=== PATIENT | male | born 1965 | race Hispanic/Latino ===

== ENCOUNTER 2023-04-02 10:43 | Emergency (ER) | payer MEDICARE ==
[~2023-04-02] VITALS: Ht 175.3 cm; Wt 92.7 kg
[2023-04-02] MEDS ORDERED: MORPHINE 4 MG SYG IM ONE (12:00)
[2023-04-02] MEDS ORDERED: TETANUS/DIPHTHERIA TOXOID [ADULT] 0.5 ML VIAL IM ONE (12:00)
[2023-04-02] MEDS ORDERED: SILV20CR11 TP (12:31)
[2023-04-02] MEDS ORDERED: CEPH500B PO (12:35)
[2023-04-02] MEDS ORDERED: SILVER SULFADIAZINE CREAM 50 GM TP ONE (12:56)
[2023-04-02] MEDS ORDERED: SILVER SULFADIAZINE CREAM 400 GM TP SCH ×2 (13:00)
[2023-04-02 13:15] VITALS: BP 126/72; PULSE 74; RESP 16; O2SAT 98
== END 2023-04-02 13:37 | disposition home or self-care (01) ==
LOC: EDH 10:43
DX: T23.261A Burn of second degree of back of right hand, initial encounter (principal); T31.0 Burns involving less than 10% of body surface; I10 Essential (primary) hypertension; X10.2XXA Contact with fats and cooking oils, initial encounter; Y93.89 Activity, other specified; Y92.89 Other specified places as the place of occurrence of the external cause; Y99.8 Other external cause status
CPT/HCPCS: 99284; 90714; 96372; 90471; 16000; J2270

== ENCOUNTER 2023-04-15 10:39 | Inpatient (IN) | payer MEDICARE ==
[~2023-04-15] VITALS: Ht 175.3 cm; Wt 91.5 kg
[~2023-04-15 10:39] MED LIST: CEPH500B PO; SILV20CR11 TP
[2023-04-15 12:36] LABS: BASOPHILS # (AUTO) 0.07 K/uL (0.00-0.20); BASOPHILS % (AUTO) 0.6 % (0.0-5.0); EOSINOPHILS # (AUTO) 0.44 K/uL (0.00-0.70); EOSINOPHILS % (AUTO) 3.6 % (0.0-8.0); IMMATURE GRANULOCYTE ABSOLUTE 0.04 K/uL (0-1); LYMPHOCYTES # (AUTO) 2.7 K/uL (1.0-4.8); LYMPHOCYTES % (AUTO) 22.2 % (21.0-51.0); MEAN CORPUSCULAR HEMOGLOBIN 27.6 pg (27.0-33.0); MEAN CORPUSCULAR HGB CONC 33.4 g/dL (32.0-36.0); MEAN CORPUSCULAR VOLUME 82.6 fL (79-99); MONOCYTES # (AUTO) 1.2 K/uL (0.1-1.0); MONOCYTES % (AUTO) 10.1 % (3.0-13.0); NEUTROPHILS # (AUTO) 7.7 K/uL (1.8-7.7); NEUTROPHILS % (AUTO) 63.2 % (40.0-77.0); PLATELET COUNT (AUTO) 454 K/uL (130-400); RED BLOOD CELL COUNT(AUTO) 5.33 MIL/uL (4.50-6.20); RED CELL DISTRIBUTION WIDTH 17.9 % (11.0-15.5); WHITE BLOOD COUNT (AUTO) 12.1 K/uL (4.8-10.8)
[2023-04-15 12:49] LABS: INR < 0.93 (0.85-1.15); PROTHROMBIN TIME 10.7 SEC (9.6-11.6)
[2023-04-15 12:50] LABS: PARTIAL THROMBOPLASTIN TIME 27.3 SEC (26.3-35.5)
[2023-04-15 13:06] LABS: ALBUMIN 3.7 g/dL (3.5-5.0); BILIRUBIN,TOTAL 0.5 mg/dL (0.2-1.0); CREATININE 0.7 mg/dL (0.5-1.5); POTASSIUM 3.9 mmol/L (3.5-5.1)
[2023-04-15 13:19] LABS: APPEARANCE,URINE CLEAR (CLEAR); BILIRUBIN,URINE NEGATIVE (NEGATIVE); COLOR,URINE LIGHT-YELLOW (YELLOW); GLUCOSE, URINE (UA) NEGATIVE (NEGATIVE); KETONES,URINE NEGATIVE (NEGATIVE); LEUKOCYTE ESTERASE ,URINE NEGATIVE Leu/uL (NEGATIVE); NITRATE,URINE NEGATIVE (NEGATIVE); OCCULT BLOOD,URINE NEGATIVE (NEGATIVE); PH,URINE 6.5 (5.0-8.0); PROTEIN,URINE NEGATIVE (NEGATIVE); UROBILINOGEN,URINE 0.2 mg/dL (0.2-1.0)
[2023-04-15 13:43] LABS: ADD UA MICROSCOPIC NO
[2023-04-15] MEDS ORDERED: ONDANSETRON 4MG INJ IVP ONE (15:00)
[2023-04-15] MEDS ORDERED: MORPHINE 4 MG SYG IM ONE (15:00)
[2023-04-15] MEDS ORDERED: 0.9%NACL 50ML IV SCH (15:15)
[2023-04-15] MEDS ORDERED: ONDANSETRON 4MG INJ IV PRN (15:30)
[2023-04-15] MEDS ORDERED: DIPHENHYDRAMINE HCL 25 MG CAPSULE PO PRN (15:30)
[2023-04-15] MEDS ORDERED: VANCOMYCIN 1G/250ML KIT 250 ML IV SCH (15:30)
[2023-04-15] MEDS ORDERED: HYDRALAZINE 20MG/ML VIAL IV PRN (15:30)
[2023-04-15] MEDS ORDERED: NITROGLYCERIN 0.4 MG SL TAB SL PRN (15:30)
[2023-04-15] MEDS ORDERED: VANCOMYCIN PROTOCOL PER PHARMACY IV SCH (15:30)
[2023-04-15] MEDS ORDERED: MAG/ALUM/SIMETH 30 ML UDCUP PO PRN (15:30)
[2023-04-15] MEDS ORDERED: LACTULOSE 20 GM/30 ML UDCUP PO PRN (15:30)
[2023-04-15] MEDS ORDERED: GUAIFENESIN-DM 200/20 MG 10 ML PO PRN (15:30)
[2023-04-15] MEDS: ZOSYN 3.375GM +NS 50ML IVPB SCH ×2 (16:06→23:10)
[2023-04-15] MEDS ORDERED: VANCOMYCIN 2GM/500 ML BAG 500 ML IV ONE (16:30)
[2023-04-15] MEDS: MORPHINE 2 MG SYG IV PRN (19:33)
[2023-04-15] MEDS ORDERED: ZOSYN 3.375GM+NS 50ML 50 ML IV SCH (21:00)
[2023-04-15] MEDS: FAMOTIDINE 20MG VIAL IV SCH (21:39)
[2023-04-15] MEDS ORDERED: ATOR10TA69 PO (22:12)
[2023-04-15] MEDS ORDERED: CLOP-31 PO (22:13)
[2023-04-15] MEDS ORDERED: LISI30TA4 PO (22:13)
[2023-04-15] MEDS ORDERED: ASPI-1443 PO (22:14)
[2023-04-16] VITALS: BP 92/58; PULSE 72; RESP 16
[2023-04-16 04:00] VITALS: BP 108/62; PULSE 72; RESP 18
[2023-04-16] MEDS: VANCOMYCIN 1G/250ML KIT 250 ML IV SCH ×3 (05:04→21:28)
[2023-04-16] MEDS: MORPHINE 2 MG SYG IV PRN ×5 (06:56→22:41)
[2023-04-16 08:00] VITALS: BP 111/63; PULSE 70; RESP 16; O2SAT 94
[2023-04-16] MEDS: FAMOTIDINE 20MG VIAL IV SCH ×2 (08:31→20:05)
[2023-04-16] MEDS: ZOSYN 3.375GM +NS 50ML IVPB SCH ×3 (08:31→22:39)
[2023-04-16] MEDS: ENOXAPARIN SODIUM 40 MG/0.4 ML SYRINGE SQ SCH (08:32)
[2023-04-16 08:51] LABS: BASOPHILS # (AUTO) 0.07 K/uL (0.00-0.20); BASOPHILS % (AUTO) 0.7 % (0.0-5.0); EOSINOPHILS # (AUTO) 0.67 K/uL (0.00-0.70); EOSINOPHILS % (AUTO) 6.3 % (0.0-8.0); HEMATOCRIT 41.8 % (42-54); IMMATURE GRANULOCYTE ABSOLUTE 0.03 K/uL (0-1); LYMPHOCYTES % (AUTO) 18.6 % (21.0-51.0); MEAN CORPUSCULAR HEMOGLOBIN 27.8 pg (27.0-33.0); MEAN CORPUSCULAR HGB CONC 33.5 g/dL (32.0-36.0); MEAN CORPUSCULAR VOLUME 83.1 fL (79-99); MONOCYTES # (AUTO) 1.2 K/uL (0.1-1.0); MONOCYTES % (AUTO) 11.1 % (3.0-13.0); NEUTROPHILS # (AUTO) 6.8 K/uL (1.8-7.7); PLATELET COUNT (AUTO) 476 K/uL (130-400); RED BLOOD CELL COUNT(AUTO) 5.03 MIL/uL (4.50-6.20); RED CELL DISTRIBUTION WIDTH 17.6 % (11.0-15.5); WHITE BLOOD COUNT (AUTO) 10.7 K/uL (4.8-10.8)
[2023-04-16] MEDS: ATORVASTATIN 10 MG TABLET PO SCH (09:06)
[2023-04-16] MEDS: ASPIRIN 81 MG EC TAB PO SCH (09:06)
[2023-04-16 09:08] LABS: ALBUMIN 3.1 g/dL (3.5-5.0); BILIRUBIN,TOTAL 0.3 mg/dL (0.2-1.0); CREATININE 0.8 mg/dL (0.5-1.5); MAGNESIUM 2.1 mg/dL (1.80-2.40); POTASSIUM 4.1 mmol/L (3.5-5.1); TOTAL PROTEIN, SERUM 7.1 g/dL (6.0-8.3)
[2023-04-16 12:00] VITALS: BP 118/69; PULSE 72; RESP 16
[2023-04-16 16:00] VITALS: BP 129/68; PULSE 70; RESP 16
[2023-04-16 20:05] VITALS: BP 123/63; PULSE 66; RESP 18; O2SAT 97
[2023-04-17] VITALS (8 sets, daily range): BP systolic 108–147; BP diastolic 68–81; PULSE 66–98; RESP 16–24; O2SAT 96–98
[2023-04-17] MEDS: VANCOMYCIN 1G/250ML KIT 250 ML IV SCH ×3 (05:08→20:26)
[2023-04-17] MEDS: ZOSYN 3.375GM +NS 50ML IVPB SCH ×3 (05:08→23:21)
[2023-04-17] MEDS: MORPHINE 2 MG SYG IV PRN ×4 (05:09→20:26)
[2023-04-17 06:40] LABS: BASOPHILS # (AUTO) 0.07 K/uL (0.00-0.20); BASOPHILS % (AUTO) 0.7 % (0.0-5.0); EOSINOPHILS # (AUTO) 0.88 K/uL (0.00-0.70); EOSINOPHILS % (AUTO) 8.9 % (0.0-8.0); HEMATOCRIT 40.9 % (42-54); IMMATURE GRANULOCYTE ABSOLUTE 0.03 K/uL (0-1); LYMPHOCYTES # (AUTO) 1.9 K/uL (1.0-4.8); LYMPHOCYTES % (AUTO) 19.6 % (21.0-51.0); MEAN CORPUSCULAR HEMOGLOBIN 27.5 pg (27.0-33.0); MEAN CORPUSCULAR HGB CONC 33.3 g/dL (32.0-36.0); MEAN CORPUSCULAR VOLUME 82.8 fL (79-99); MONOCYTES # (AUTO) 1.1 K/uL (0.1-1.0); MONOCYTES % (AUTO) 10.9 % (3.0-13.0); NEUTROPHILS # (AUTO) 5.9 K/uL (1.8-7.7); NEUTROPHILS % (AUTO) 59.6 % (40.0-77.0); PLATELET COUNT (AUTO) 453 K/uL (130-400); RED BLOOD CELL COUNT(AUTO) 4.94 MIL/uL (4.50-6.20); RED CELL DISTRIBUTION WIDTH 17.6 % (11.0-15.5); WHITE BLOOD COUNT (AUTO) 9.9 K/uL (4.8-10.8)
[2023-04-17 06:51] LABS: ALBUMIN 2.8 g/dL (3.5-5.0); BILIRUBIN,TOTAL 0.4 mg/dL (0.2-1.0); CREATININE 0.8 mg/dL (0.5-1.5); POTASSIUM 4.1 mmol/L (3.5-5.1); TOTAL PROTEIN, SERUM 6.6 g/dL (6.0-8.3)
[2023-04-17] MEDS: ASPIRIN 81 MG EC TAB PO SCH (08:41)
[2023-04-17] MEDS: FAMOTIDINE 20MG VIAL IV SCH ×2 (08:41→20:26)
[2023-04-17] MEDS: ATORVASTATIN 10 MG TABLET PO SCH (08:42)
[2023-04-17] MEDS: ENOXAPARIN SODIUM 40 MG/0.4 ML SYRINGE SQ SCH (08:43)
[2023-04-17] MEDS: LISINOPRIL 20 MG TABLET PO SCH (08:50)
[2023-04-18] VITALS (7 sets, daily range): BP systolic 108–142; BP diastolic 54–72; PULSE 62–77; RESP 18–20; O2SAT 96–97
[2023-04-18] MEDS: VANCOMYCIN 1G/250ML KIT 250 ML IV SCH (06:19)
[2023-04-18] MEDS: ZOSYN 3.375GM +NS 50ML IVPB SCH ×3 (06:19→22:44)
[2023-04-18] MEDS: MORPHINE 2 MG SYG IV PRN ×4 (06:28→22:45)
[2023-04-18] MEDS: ATORVASTATIN 10 MG TABLET PO SCH (09:28)
[2023-04-18] MEDS: FAMOTIDINE 20MG VIAL IV SCH ×2 (09:28→20:46)
[2023-04-18] MEDS: ASPIRIN 81 MG EC TAB PO SCH (09:28)
[2023-04-18] MEDS: LISINOPRIL 20 MG TABLET PO SCH (09:28)
[2023-04-18] MEDS: CLOPIDOGREL 75MG TAB PO SCH (09:28)
[2023-04-18] MEDS: ENOXAPARIN SODIUM 40 MG/0.4 ML SYRINGE SQ SCH (09:29)
[2023-04-18 13:01] LABS: BASOPHILS # (AUTO) 0.07 K/uL (0.00-0.20); BASOPHILS % (AUTO) 0.6 % (0.0-5.0); EOSINOPHILS # (AUTO) 1.11 K/uL (0.00-0.70); EOSINOPHILS % (AUTO) 9.3 % (0.0-8.0); HEMATOCRIT 41.1 % (42-54); IMMATURE GRANULOCYTE ABSOLUTE 0.04 K/uL (0-1); LYMPHOCYTES # (AUTO) 2.7 K/uL (1.0-4.8); LYMPHOCYTES % (AUTO) 22.8 % (21.0-51.0); MEAN CORPUSCULAR HEMOGLOBIN 27.9 pg (27.0-33.0); MEAN CORPUSCULAR HGB CONC 33.8 g/dL (32.0-36.0); MEAN CORPUSCULAR VOLUME 82.5 fL (79-99); MONOCYTES # (AUTO) 1.3 K/uL (0.1-1.0); MONOCYTES % (AUTO) 10.9 % (3.0-13.0); NEUTROPHILS # (AUTO) 6.7 K/uL (1.8-7.7); NEUTROPHILS % (AUTO) 56.1 % (40.0-77.0); PLATELET COUNT (AUTO) 486 K/uL (130-400); RED BLOOD CELL COUNT(AUTO) 4.98 MIL/uL (4.50-6.20); RED CELL DISTRIBUTION WIDTH 17.7 % (11.0-15.5)
[2023-04-18 13:09] LABS: CREATININE 0.7 mg/dL (0.5-1.5); POTASSIUM 3.9 mmol/L (3.5-5.1)
[2023-04-18] MEDS: VANCOMYCIN 750MG VIAL IVPB SCH (17:57)
[2023-04-19] VITALS (7 sets, daily range): BP systolic 118–134; BP diastolic 63–74; PULSE 62–75; RESP 18–20; O2SAT 97–98
[2023-04-19] MEDS: VANCOMYCIN 750MG VIAL IVPB SCH ×3 (02:06→17:23)
[2023-04-19 05:16] LABS: MEAN CORPUSCULAR HEMOGLOBIN 27.7 pg (27.0-33.0); MEAN CORPUSCULAR HGB CONC 32.8 g/dL (32.0-36.0); MEAN CORPUSCULAR VOLUME 84.6 fL (79-99); RED BLOOD CELL COUNT(AUTO) 4.73 MIL/uL (4.50-6.20); RED CELL DISTRIBUTION WIDTH 17.4 % (11.0-15.5); WHITE BLOOD COUNT (AUTO) 10.5 K/uL (4.8-10.8)
[2023-04-19 05:33] LABS: CREATININE 0.7 mg/dL (0.5-1.5); POTASSIUM 4.1 mmol/L (3.5-5.1)
[2023-04-19] MEDS: ZOSYN 3.375GM +NS 50ML IVPB SCH ×3 (06:33→22:57)
[2023-04-19] MEDS ORDERED: IOHEXOL-350 50ML VIAL IV ONE (09:36)
[2023-04-19] MEDS ORDERED: IOHEXOL 350 MG/ML 100ML INFUS..BTL IV ONE (09:36)
[2023-04-19] MEDS: ENOXAPARIN SODIUM 40 MG/0.4 ML SYRINGE SQ SCH (10:11)
[2023-04-19] MEDS: CLOPIDOGREL 75MG TAB PO SCH (10:12)
[2023-04-19] MEDS: ASPIRIN 81 MG EC TAB PO SCH (10:12)
[2023-04-19] MEDS: FAMOTIDINE 20MG VIAL IV SCH ×2 (10:12→22:57)
[2023-04-19] MEDS: LISINOPRIL 20 MG TABLET PO SCH (10:12)
[2023-04-19] MEDS: ATORVASTATIN 10 MG TABLET PO SCH (10:12)
[2023-04-20] VITALS (8 sets, daily range): BP systolic 121–148; BP diastolic 64–81; PULSE 61–108; RESP 16–19; O2SAT 95–98
[2023-04-20] MEDS ORDERED: VANCOMYCIN 1G/250ML KIT 250 ML IV SCH (02:00)
[2023-04-20 04:58] LABS: HEMATOCRIT 39.7 % (42-54); MEAN CORPUSCULAR HGB CONC 33.5 g/dL (32.0-36.0); MEAN CORPUSCULAR VOLUME 83.6 fL (79-99); RED BLOOD CELL COUNT(AUTO) 4.75 MIL/uL (4.50-6.20); RED CELL DISTRIBUTION WIDTH 17.2 % (11.0-15.5); WHITE BLOOD COUNT (AUTO) 10.7 K/uL (4.8-10.8)
[2023-04-20 05:12] LABS: CREATININE 0.8 mg/dL (0.5-1.5); POTASSIUM 3.6 mmol/L (3.5-5.1)
[2023-04-20] MEDS: ZOSYN 3.375GM +NS 50ML IVPB SCH ×3 (06:30→22:48)
[2023-04-20] MEDS: ENOXAPARIN SODIUM 40 MG/0.4 ML SYRINGE SQ SCH (08:52)
[2023-04-20] MEDS: CLOPIDOGREL 75MG TAB PO SCH (08:53)
[2023-04-20] MEDS: LISINOPRIL 20 MG TABLET PO SCH (08:53)
[2023-04-20] MEDS: FAMOTIDINE 20MG VIAL IV SCH ×2 (08:53→20:15)
[2023-04-20] MEDS: ATORVASTATIN 10 MG TABLET PO SCH (08:54)
[2023-04-20] MEDS: ASPIRIN 81 MG EC TAB PO SCH (08:54)
[2023-04-20] MEDS ORDERED: COMPOUND IV REFRIGERATED 1 EACH IVSOLN MISC PRN (13:30)
[2023-04-20] MEDS: VANCOMYCIN 1G/250ML KIT 250 ML IV SCH ×2 (13:44→21:27)
[2023-04-20 17:19] LABS: INR < 0.93 (0.85-1.15); PROTHROMBIN TIME 10.7 SEC (9.6-11.6)
[2023-04-20 17:21] LABS: PARTIAL THROMBOPLASTIN TIME 27.4 SEC (26.3-35.5)
[2023-04-20] MEDS: MORPHINE 2 MG SYG IVP PRN (20:16)
[2023-04-21] VITALS (8 sets, daily range): BP systolic 112–140; BP diastolic 64–75; PULSE 60–97; RESP 16–18; O2SAT 96–98
[2023-04-21] MEDS: VANCOMYCIN 1G/250ML KIT 250 ML IV SCH ×3 (04:39→21:40)
[2023-04-21] MEDS: MORPHINE 2 MG SYG IVP PRN ×3 (04:39→20:26)
[2023-04-21 04:45] LABS: HEMATOCRIT 39.7 % (42-54); MEAN CORPUSCULAR HEMOGLOBIN 27.4 pg (27.0-33.0); MEAN CORPUSCULAR HGB CONC 33.2 g/dL (32.0-36.0); MEAN CORPUSCULAR VOLUME 82.5 fL (79-99); RED BLOOD CELL COUNT(AUTO) 4.81 MIL/uL (4.50-6.20); RED CELL DISTRIBUTION WIDTH 17.6 % (11.0-15.5)
[2023-04-21 04:59] LABS: CREATININE 0.7 mg/dL (0.5-1.5); POTASSIUM 4.6 mmol/L (3.5-5.1)
[2023-04-21] MEDS: ZOSYN 3.375GM +NS 50ML IVPB SCH ×3 (05:16→22:37)
[2023-04-21] MEDS: LISINOPRIL 20 MG TABLET PO SCH (08:26)
[2023-04-21] MEDS: ASPIRIN 81 MG EC TAB PO SCH (08:26)
[2023-04-21] MEDS: ENOXAPARIN SODIUM 40 MG/0.4 ML SYRINGE SQ SCH (08:26)
[2023-04-21] MEDS: ATORVASTATIN 10 MG TABLET PO SCH (08:26)
[2023-04-21] MEDS: CLOPIDOGREL 75MG TAB PO SCH (08:27)
[2023-04-21] MEDS: FAMOTIDINE 20MG VIAL IV SCH ×2 (08:27→20:26)
[2023-04-21] MEDS: CILOSTAZOL 100 MG TAB PO SCH ×2 (12:32→20:26)
[2023-04-22] VITALS (7 sets, daily range): BP systolic 104–137; BP diastolic 57–74; PULSE 67–87; RESP 16–20; O2SAT 96–97
[2023-04-22] MEDS: MORPHINE 2 MG SYG IVP PRN ×3 (00:52→20:47)
[2023-04-22 03:59] LABS: HEMATOCRIT 38.5 % (42-54); MEAN CORPUSCULAR HEMOGLOBIN 27.7 pg (27.0-33.0); MEAN CORPUSCULAR VOLUME 84.1 fL (79-99); RED BLOOD CELL COUNT(AUTO) 4.58 MIL/uL (4.50-6.20); RED CELL DISTRIBUTION WIDTH 17.5 % (11.0-15.5); WHITE BLOOD COUNT (AUTO) 8.1 K/uL (4.8-10.8)
[2023-04-22 04:19] LABS: CREATININE 0.8 mg/dL (0.5-1.5); POTASSIUM 3.9 mmol/L (3.5-5.1)
[2023-04-22] MEDS: VANCOMYCIN 1G/250ML KIT 250 ML IV SCH ×3 (05:18→20:46)
[2023-04-22] MEDS: ZOSYN 3.375GM +NS 50ML IVPB SCH ×2 (05:18→16:23)
[2023-04-22] MEDS: CLOPIDOGREL 75MG TAB PO SCH (09:01)
[2023-04-22] MEDS: FAMOTIDINE 20MG VIAL IV SCH ×2 (09:01→20:45)
[2023-04-22] MEDS: ASPIRIN 81 MG EC TAB PO SCH (09:01)
[2023-04-22] MEDS: LISINOPRIL 20 MG TABLET PO SCH (09:02)
[2023-04-22] MEDS: ATORVASTATIN 10 MG TABLET PO SCH (09:02)
[2023-04-22] MEDS: ENOXAPARIN SODIUM 40 MG/0.4 ML SYRINGE SQ SCH (09:03)
[2023-04-22] MEDS: CILOSTAZOL 100 MG TAB PO SCH ×2 (09:03→20:45)
[2023-04-23] VITALS (8 sets, daily range): BP systolic 99–120; BP diastolic 59–75; PULSE 72–84; RESP 18–20; O2SAT 96
[2023-04-23] MEDS: ZOSYN 3.375GM +NS 50ML IVPB SCH ×3 (00:22→15:16)
[2023-04-23 05:35] LABS: CREATININE 0.7 mg/dL (0.5-1.5); POTASSIUM 3.5 mmol/L (3.5-5.1); VANCOMYCIN TROUGH 12.4 UG/ML (10.0-20.0)
[2023-04-23 06:12] LABS: HEMATOCRIT 38.6 % (42-54); MEAN CORPUSCULAR HEMOGLOBIN 27.8 pg (27.0-33.0); MEAN CORPUSCULAR HGB CONC 33.9 g/dL (32.0-36.0); RED BLOOD CELL COUNT(AUTO) 4.71 MIL/uL (4.50-6.20); RED CELL DISTRIBUTION WIDTH 17.2 % (11.0-15.5); WHITE BLOOD COUNT (AUTO) 7.4 K/uL (4.8-10.8)
[2023-04-23] MEDS: VANCOMYCIN 1G/250ML KIT 250 ML IV SCH ×3 (06:50→21:33)
[2023-04-23] MEDS: ENOXAPARIN SODIUM 40 MG/0.4 ML SYRINGE SQ SCH (08:57)
[2023-04-23] MEDS: LISINOPRIL 20 MG TABLET PO SCH (08:58)
[2023-04-23] MEDS: CILOSTAZOL 100 MG TAB PO SCH ×2 (08:58→21:33)
[2023-04-23] MEDS: ATORVASTATIN 10 MG TABLET PO SCH (08:58)
[2023-04-23] MEDS: FAMOTIDINE 20MG VIAL IV SCH ×2 (08:58→21:33)
[2023-04-23] MEDS: CLOPIDOGREL 75MG TAB PO SCH (08:58)
[2023-04-23] MEDS: ASPIRIN 81 MG EC TAB PO SCH (08:58)
[2023-04-23] MEDS: MORPHINE 2 MG SYG IVP PRN ×3 (09:10→21:32)
[2023-04-24] MEDS: ZOSYN 3.375GM +NS 50ML IVPB SCH ×4 (00:03→23:54)
[2023-04-24 04:00] VITALS: BP 113/64; PULSE 77; RESP 19
[2023-04-24 04:59] LABS: HEMATOCRIT 38.9 % (42-54); MEAN CORPUSCULAR HEMOGLOBIN 27.5 pg (27.0-33.0); MEAN CORPUSCULAR HGB CONC 32.9 g/dL (32.0-36.0); MEAN CORPUSCULAR VOLUME 83.7 fL (79-99); RED BLOOD CELL COUNT(AUTO) 4.65 MIL/uL (4.50-6.20); RED CELL DISTRIBUTION WIDTH 17.3 % (11.0-15.5); WHITE BLOOD COUNT (AUTO) 7.6 K/uL (4.8-10.8)
[2023-04-24 05:14] LABS: CREATININE 0.8 mg/dL (0.5-1.5); POTASSIUM 3.7 mmol/L (3.5-5.1)
[2023-04-24] MEDS: VANCOMYCIN 1G/250ML KIT 250 ML IV SCH ×3 (06:00→21:38)
[2023-04-24 07:30] VITALS: O2SAT 98
[2023-04-24 08:00] VITALS: BP 114/67; PULSE 70; RESP 19
[2023-04-24] MEDS: ASPIRIN 81 MG EC TAB PO SCH (08:38)
[2023-04-24] MEDS: CLOPIDOGREL 75MG TAB PO SCH (08:38)
[2023-04-24] MEDS: CILOSTAZOL 100 MG TAB PO SCH ×2 (08:38→19:47)
[2023-04-24] MEDS: FAMOTIDINE 20MG VIAL IV SCH ×2 (08:38→19:47)
[2023-04-24] MEDS: LISINOPRIL 20 MG TABLET PO SCH (08:38)
[2023-04-24] MEDS: ATORVASTATIN 10 MG TABLET PO SCH (08:38)
[2023-04-24] MEDS: ENOXAPARIN SODIUM 40 MG/0.4 ML SYRINGE SQ SCH (08:39)
[2023-04-24] MEDS: MORPHINE 2 MG SYG IVP PRN ×3 (09:17→21:39)
[2023-04-24 12:00] VITALS: BP 110/59; PULSE 74; RESP 19
[2023-04-24 18:19] VITALS: BP 129/67; PULSE 84; RESP 19
[2023-04-24 20:00] VITALS: BP 131/68; PULSE 79; RESP 19; O2SAT 96
[2023-04-25] VITALS (9 sets, daily range): BP systolic 98–131; BP diastolic 58–80; PULSE 72–88; RESP 18–20; O2SAT 96–97
[2023-04-25 05:38] LABS: BASOPHILS # (AUTO) 0.04 K/uL (0.00-0.20); BASOPHILS % (AUTO) 0.5 % (0.0-5.0); EOSINOPHILS # (AUTO) 0.55 K/uL (0.00-0.70); EOSINOPHILS % (AUTO) 7.2 % (0.0-8.0); HEMATOCRIT 38.8 % (42-54); IMMATURE GRANULOCYTE ABSOLUTE 0.04 K/uL (0-1); LYMPHOCYTES # (AUTO) 0.7 K/uL (1.0-4.8); LYMPHOCYTES % (AUTO) 9.4 % (21.0-51.0); MEAN CORPUSCULAR HEMOGLOBIN 27.4 pg (27.0-33.0); MEAN CORPUSCULAR HGB CONC 33.5 g/dL (32.0-36.0); MEAN CORPUSCULAR VOLUME 81.7 fL (79-99); MONOCYTES # (AUTO) 0.8 K/uL (0.1-1.0); NEUTROPHILS # (AUTO) 5.6 K/uL (1.8-7.7); NEUTROPHILS % (AUTO) 72.4 % (40.0-77.0); PLATELET COUNT (AUTO) 418 K/uL (130-400); RED BLOOD CELL COUNT(AUTO) 4.75 MIL/uL (4.50-6.20); RED CELL DISTRIBUTION WIDTH 17.3 % (11.0-15.5); WHITE BLOOD COUNT (AUTO) 7.7 K/uL (4.8-10.8)
[2023-04-25 05:58] LABS: ALBUMIN 2.9 g/dL (3.5-5.0); BILIRUBIN,TOTAL 0.2 mg/dL (0.2-1.0); CREATININE 0.8 mg/dL (0.5-1.5); POTASSIUM 3.7 mmol/L (3.5-5.1); TOTAL PROTEIN, SERUM 6.9 g/dL (6.0-8.3)
[2023-04-25] MEDS: VANCOMYCIN 1G/250ML KIT 250 ML IV SCH ×3 (05:59→22:06)
[2023-04-25] MEDS: ZOSYN 3.375GM +NS 50ML IVPB SCH ×2 (09:01→18:23)
[2023-04-25] MEDS: CLOPIDOGREL 75MG TAB PO SCH (09:02)
[2023-04-25] MEDS: ATORVASTATIN 10 MG TABLET PO SCH (09:02)
[2023-04-25] MEDS: CILOSTAZOL 100 MG TAB PO SCH ×2 (09:02→20:42)
[2023-04-25] MEDS: ASPIRIN 81 MG EC TAB PO SCH (09:03)
[2023-04-25] MEDS: LISINOPRIL 20 MG TABLET PO SCH (09:03)
[2023-04-25] MEDS: FAMOTIDINE 20MG VIAL IV SCH ×2 (09:03→20:41)
[2023-04-25] MEDS: ENOXAPARIN SODIUM 40 MG/0.4 ML SYRINGE SQ SCH (09:06)
[2023-04-25] MEDS: MORPHINE 2 MG SYG IVP PRN ×4 (09:46→20:46)
[2023-04-25 11:57] LABS: HEMOGLOBIN A1C 6.6 % (4.0-6.0)
[2023-04-26 03:49] VITALS: BP 109/65; PULSE 94; RESP 18
[2023-04-26] MEDS: VANCOMYCIN 1G/250ML KIT 250 ML IV SCH ×3 (06:04→21:12)
[2023-04-26 07:40] VITALS: BP 118/67; PULSE 78; RESP 18
[2023-04-26 08:30] VITALS: O2SAT 97
[2023-04-26] MEDS: ZOSYN 3.375GM +NS 50ML IVPB SCH ×4 (10:00→23:57)
[2023-04-26] MEDS: LISINOPRIL 20 MG TABLET PO SCH (10:00)
[2023-04-26] MEDS: ATORVASTATIN 10 MG TABLET PO SCH (10:00)
[2023-04-26] MEDS: CLOPIDOGREL 75MG TAB PO SCH (10:00)
[2023-04-26] MEDS: ASPIRIN 81 MG EC TAB PO SCH (10:00)
[2023-04-26] MEDS: CILOSTAZOL 100 MG TAB PO SCH ×2 (10:00→21:06)
[2023-04-26] MEDS: ENOXAPARIN SODIUM 40 MG/0.4 ML SYRINGE SQ SCH (10:01)
[2023-04-26] MEDS: ACETAMINOPHEN 325 MG TAB PO PRN (10:01)
[2023-04-26] MEDS: FAMOTIDINE 20MG VIAL IV SCH ×2 (10:02→21:06)
[2023-04-26 12:00] VITALS: BP 134/87; PULSE 76; RESP 18
[2023-04-26 13:14] LABS: CREATININE 0.9 mg/dL (0.5-1.5); POTASSIUM 3.6 mmol/L (3.5-5.1)
[2023-04-26 15:00] VITALS: BP 115/59; PULSE 76; RESP 18
[2023-04-26 19:25] VITALS: BP 143/69; PULSE 91; RESP 18
[2023-04-27] VITALS (7 sets, daily range): BP systolic 118–153; BP diastolic 64–93; PULSE 70–98; RESP 18–20; O2SAT 97–98
[2023-04-27] MEDS: VANCOMYCIN 1G/250ML KIT 250 ML IV SCH ×2 (05:33→14:23)
[2023-04-27] MEDS: ASPIRIN 81 MG EC TAB PO SCH (09:51)
[2023-04-27] MEDS: FAMOTIDINE 20MG VIAL IV SCH (09:51)
[2023-04-27] MEDS: ATORVASTATIN 10 MG TABLET PO SCH (09:51)
[2023-04-27] MEDS: CILOSTAZOL 100 MG TAB PO SCH (09:51)
[2023-04-27] MEDS: CLOPIDOGREL 75MG TAB PO SCH (09:52)
[2023-04-27] MEDS: LISINOPRIL 20 MG TABLET PO SCH (09:52)
[2023-04-27] MEDS: ZOSYN 3.375GM +NS 50ML IVPB SCH (09:52)
[2023-04-27] MEDS: ENOXAPARIN SODIUM 40 MG/0.4 ML SYRINGE SQ SCH (09:52)
[2023-04-27] MEDS: ACETAMINOPHEN 325 MG TAB PO PRN (16:42)
== END 2023-04-27 17:40 | DRG 638 ==
LOC: EDH 10:39 → EDHIP 15:10 → 3DH 22:39
PROVIDERS: ADMIT Hospitalist; ATTEND Hospitalist
PROC: 02HV33Z Insertion of Infusion Device into Superior Vena Cava, Percutaneous Approach (ICD-10-PCS; principal; 2023-04-20)
PROC: B548ZZA Ultrasonography of Superior Vena Cava, Guidance (ICD-10-PCS; 2023-04-20)
DX: E11.69 Type 2 diabetes mellitus with other specified complication (principal); L03.113 Cellulitis of right upper limb; L03.116 Cellulitis of left lower limb; L97.326 Non-pressure chronic ulcer of left ankle with bone involvement without evidence of necrosis; L97.329 Non-pressure chronic ulcer of left ankle with unspecified severity; M86.8X7 Other osteomyelitis, ankle and foot; T84.623A Infection and inflammatory reaction due to internal fixation device of left tibia, initial encounter; B95.2 Enterococcus as the cause of diseases classified elsewhere; E11.51 Type 2 diabetes mellitus with diabetic peripheral angiopathy without gangrene; I25.10 Atherosclerotic heart disease of native coronary artery without angina pectoris; E66.9 Obesity, unspecified; E78.5 Hyperlipidemia, unspecified; Z96.651 Presence of right artificial knee joint; I10 Essential (primary) hypertension; I87.2 Venous insufficiency (chronic) (peripheral); L89.500 Pressure ulcer of unspecified ankle, unstageable; M77.32 Calcaneal spur, left foot; Z87.891 Personal history of nicotine dependence; Z89.611 Acquired absence of right leg above knee; Z91.040 Latex allergy status; Y79.2 Prosthetic and other implants, materials and accessory orthopedic devices associated with adverse incidents; Z68.29 Body mass index [BMI] 29.0-29.9, adult; Z79.84 Long term (current) use of oral hypoglycemic drugs
CPT/HCPCS: 36415; 36569; 71045; 73610; 73721; 75635; 78315; 80048; 80053; 80202; 81003; 82306; 82550; 83036; 83605; 83735; 84145; 84484; 85025; 85027; 85049; 85610; 85651; 85730; 86140; 87040; 87070; 87076; 87077; 87088; 87186; 93925; A6248; A9503; C1894; G0378; J1650; J2270; J2405; J2543; J3370; J3490; Q0163; Q9967